=== PATIENT | male | born 1940 | race Caucasian/White ===

== ENCOUNTER 2018-07-20 08:17 | Emergency (ER) | payer OTHER ==
[~2018-07-20] VITALS: Ht 177.8 cm; Wt 83.9 kg
[2018-07-20] MEDS ORDERED: ALLOPURINOL 10100 M1 PO (08:33)
[2018-07-20] MEDS ORDERED: OMEPRAZOLE20 M2 PO (08:33)
[2018-07-20] MEDS ORDERED: PROSCAR 5MG TABL5 MG PO (08:33)
[2018-07-20] MEDS ORDERED: MYRBETRIQ50 MG PO (08:34)
[2018-07-20] MEDS ORDERED: BYSTOLIC 5 MG5 M1 PO (08:34)
[2018-07-20] MEDS ORDERED: VITAMIN D2000 UNIT PO (08:34)
[2018-07-20] MEDS ORDERED: COZAAR 25 MG TA25 M1 PO (08:36)
[2018-07-20] MEDS ORDERED: ZETIA10 MG PO (08:36)
[2018-07-20] MEDS ORDERED: ATORVASTATIN CA40 MG (08:36)
[2018-07-20] MEDS ORDERED: FLOMAX0.4 MG PO (08:36)
[2018-07-20] MEDS ORDERED: ASPIR 8181 M1 PO (08:37)
[2018-07-20] MEDS ORDERED: CO Q-10100 MG PO (08:37)
[2018-07-20] MEDS ORDERED: NYSTATIN100000 UNI SW&SWALLOW (09:54)
[2018-07-20] MEDS ORDERED: CLOTRIMAZOLE10 MG DISSOLVE (09:54)
[2018-07-20 10:17] VITALS: BP 123/64
== END 2018-07-20 10:18 | disposition home or self-care (01) ==
LOC: ER 08:17
DX: K12.30 Oral mucositis (ulcerative), unspecified (principal); Z95.1 Presence of aortocoronary bypass graft; Z95.5 Presence of coronary angioplasty implant and graft; Z88.1 Allergy status to other antibiotic agents; Z88.8 Allergy status to other drugs, medicaments and biological substances